=== PATIENT | female | born 1995 | race Caucasian/White ===

== ENCOUNTER 2020-09-04 11:49 | Emergency (ER) | payer SELFPAY ==
--- NOTE | ~2020-09-04 | XR_ITS ---
EXAMINATION: XR foot RT min 3V DATE: 09/04/2020 12:04 INDICATION: Right foot injury and pain. TECHNIQUE: 4 views of right foot were obtained. COMPARISON: None. FINDINGS: There is a bunionette deformity involving the fifth digit. No fracture. Joint spaces are no rmal. IMPRESSION: 1. Bunionette. Reviewed, dictated and finalized at location A. IMPRESSION: 1. Bunionette.
[2020-09-04 11:55] VITALS: BP 104/75; PULSE 86; RESP 16; TEMP 36.8; O2SAT 100
--- NOTE | 2020-09-04 12:01 | ED.LOWEXIN ---
HPI - Extremity Injury (Lower) General Chief Complaint: Extremity Injury, Lower Stated Complaint: rt foot injury Time Seen by Provider: 09/04/20 12:03 Source: patient and RN notes reviewed Mode of arrival: ambulatory Limitations: no limitations History of Present Illness HPI Narrative: 25-year-old female presents with concern for right foot pain. Reports 2 days ago she slipped while holding her daughter reports pain, swelling, bruising. Reports minimal pain at rest, increased pain with flexing extending and weightbearing. Reports using ice and ibuprofen with little relief. Denies decreased strength, range of motion, sensation. complaint: foot injury Related Data Home Medications Medication Instructions Recorded Confirmed etonogestrel [Nexplanon] 1 implant SUBDERMAL ONCE 09/04/20 09/04/20 Allergies Allergy/AdvReac Type Severity Reaction Status Date / Time prednisone AdvReac Mild Swelling Verified 09/04/20 12:08 Review of Systems Review of Systems: Narrative: CONSTITUTIONAL: Denies malaise, chills, sweats, or fever. SKIN: Denies abrasions, lacerations MUSCULOSKELETAL: Reports right foot pain, swelling, bruising NEUROLOGIC: Denies numbness, weakness All systems reviewed & are unremarkable except as noted in HPI and below PMFSH Comments At time of signature, agree with nursing past medical, surgical, social and family history. There is no relevant family history pertinent to the presenting complaint Exam Narrative: Exam Narrative: GENERAL: Well-appearing, well-nourished, and in no acute distress. HEAD: Normocephalic, atraumatic. EYES: PERRLA, conjunctivae clear NECK: Supple. CHEST: Speaks in full sentences. No respiratory distress. HEART: Regular rate and rhythm. Normal and equal peripheral pulses. EXTREMITIES: Right foot, digits have normal strength and sensation, normal range of motion. Mild dorsal edema and ecchymosis. 5/5 strength with ankle and digit flexion and extension. Normal sensation with sensitivity to light touch and pain. No point tenderness. No open wounds, no skin tenting, no devitalized tissue or atrophy, no trophic changes, no obvious deformity, alignment normal, nearby joints and structures intact. Distal pulses palpable and equal bilaterally, skin warm, dry, pink. Capillary refill less than 3 seconds. SKIN: Warm, dry, no rash. NEURO: Alert and oriented x3. PSYCH: Normal mood and affect Course Course Emergency Course: Patient is aware of diagnosis, understands and agrees to treatment plan. Anticipatory guidance given. Patient agrees to follow-up as directed and is aware of reasons to seek care at the emergency department. Portions of this record may have been created with voice recognition software Vital Signs Vital signs: Vital Signs Temperature 98.2 F 09/04/20 11:55 Pulse Rate 86 09/04/20 11:55 Respiratory Rate 16 09/04/20 11:55 Blood Pressure 104/75 09/04/20 11:55 Pulse Oximetry 100 09/04/20 11:55 Temperature 98.2 F 09/04/20 11:55 Pulse Rate 86 09/04/20 11:55 Respiratory Rate 16 09/04/20 11:55 Blood Pressure 104/75 09/04/20 11:55 Pulse Oximetry 100 09/04/20 11:55 Reviewed. MDM - Extremity Injury (Lower) MDM Narrative Medical decision making narrative: Patients injury and pain is consistent with musculoskeletal etiology. No signs of neurological or vascular compromise on exam. Compartments and tissues are soft without signs of compartment syndrome. Pain is felt appropriate for further evaluation on an outpatient basis. Imaging Data My impression: Images reviewed, interpreted by radiologist, agree, see report. Radiologist's impression: EXAMINATION: XR foot RT min 3V DATE: 09/04/2020 12:04 INDICATION: Right foot injury and pain. TECHNIQUE: 4 views of right foot were obtained. COMPARISON: None. FINDINGS: There is a bunionette deformity involving the fifth digit. No fracture. Joint spaces are normal. IMPRESSION: 1. Bunionette. Go
--- NOTE | 2020-09-04 12:03 | PC.NURSE ---
PT DECLINED ICE FOR COMFORT AND WHEELCHAIR TO RADIOLOGY
== END 2020-09-04 12:32 | disposition home or self-care (01) ==
PROVIDERS: Emergency Provider Nurse Practitioner
DX: S99.921A Unspecified injury of right foot, initial encounter (principal); W18.40XA Slipping, tripping and stumbling without falling, unspecified, initial encounter
CPT/HCPCS: 73630; 99213; G0463